=== PATIENT | male | born 2000 | race Caucasian/White ===

== ENCOUNTER 2022-07-20 23:41 | Emergency (ER) | payer OTHER, SELFPAY ==
--- NOTE | ~2022-07-20 | XR_ITS ---
EXAMINATION: XR FOOT, LEFT CLINICAL INFORMATION: Injury. COMPARISON: None available. TECHNIQUE: AP, lateral, and oblique views of the left foot. FINDINGS: Punctate radiopaque foci overlying the soft tissues of the distal first toe. No acute fractures or malalignment. XR/XR foot LT min 3V IMPRESSION: 1. No acute fractures or malalignment. 2. Punctate radiopaque foci overlying the soft tissues of the distal first toe likely foreign bodies, correlate with physical examination.
[2022-07-20 23:53] VITALS: BP 137/86; PULSE 82; RESP 18; TEMP 36.6; O2SAT 96; BMI 37.3
--- NOTE | 2022-07-21 01:09 | ED.GENADULT ---
HPI - General Adult General Chief complaint: Extremity Injury, Lower Stated complaint: Left foot injury Time Seen by Provider: 07/21/22 01:02 Source: patient, RN notes reviewed and old records reviewed Mode of arrival: ambulatory Limitations: no limitations History of Present Illness HPI narrative: 22-year-old male presents for evaluation of left ankle pain Patient reports that 1/2 days ago he was playing basketball when he twisted his ankle He has had trouble bearing weight on the all left leg since. He did not fall or, his head or lose consciousness He denies any other injuries He reports his pain is 8/10 and worse with walking Related Data Allergies Allergy/AdvReac Type Severity Reaction Status Date / Time No Known Allergies Allergy Verified 07/20/22 23:57 Review of Systems Musculoskeletal: Musculoskeletal: Reports abnormal gait, Reports arthralgias, Reports joint swelling and Reports limited range of motion Neurologic: Reports abnormal gait PMFSH Social History Social History Advance Directives: No Advance Directives Information Provided: Yes Physical Exam ED Vital Signs: Vital Signs - 24 hr 07/20/22 23:53 Temperature 97.9 F Pulse Rate 82 Respiratory Rate 18 Blood Pressure 137/86 Pulse Oximetry 96 Oxygen Delivery Method Room Air BMI result Body Mass Index 37.3 Const General: healthy appearing, comfortable, no acute distress, alert and awake Nutritional Appearance: well nourished Orientation/consciousness: patient oriented x3 HENMT Head: Yes normocephalic and Yes atraumatic Throat: Yes posterior oropharynx normal Skin General skin exam: no rashes or lesions noted and elasticity normal Neuro General: patient oriented x3 Cranial nerves: Yes CN's II-XII intact bilaterally and Yes Bilaterally intact EOM present Cognition (Neuro): normal cognition Extrem Other: Patient has edema with tenderness to the medial and lateral aspect of the left ankle. No significant palpable deformities. No Achilles tenderness. Patient is able to dorsiflex and plantar flex the ankle. Medical Decision Making Medical Decision Making MDM Narrative: X-ray shows no acute fracture of the left ankle. The patient likely has a sprain. The punctate foreign body seen at left great toe is noted on Radiology impression. However, no open wounds to suggest this is an acute foreign body. Differential Diagnosis Ankle sprain Ankle fracture Ankle dislocation Contusion Independent Interpretation I performed an independent interpretation of an: Plain X-Ray (No obvious fracture of the left ankle) Radiology Impression Discussion of test interpretation with radiology: I have reviewed the radiologist's reading. (No fracture. Punctate foreign body the left 1st toe) Discharge Plan Discharge Clinical Impression: Left ankle sprain Patient Disposition: Home, Self-Care Instructions: Ankle Sprain (ED) Additional Instructions: To continue ice, rest, elevation, NSAIDs. Your ankle x-ray did not show any evidence of fracture. You may use the crutches as needed to help with ambulation. When you are comfortable bearing weight on your left leg, you may stop using the crutches Interventions: ED Discharge Assessment Last Done: 07/21/22 02:15 Discharge Date/Time: 07/21/22 01:20
--- OUTSIDE RECORDS SUMMARY | 2022-07-21 01:15 | XMS_ITS | Continuity of Care Document ---
Author Name Unknown Organization [facility] Address [address] [place] [address]- Care Team Providers Care Tumbling And Rolling Supervisor Name Role Phone Not on Staff, PCP Primary Care Physician Unavail able [facility]): 02/28/22 - 03/30/22 [facility] [address] [place] [address] Allergies, Adverse Reactions, Alerts No Known Allergies Immunizations Given and Recorded Vaccine Date Status Refusal Reason Human Papillomavirus Vaccine 1 12/26/18 Given Human Papillomavirus Vaccine 2 07/09/17 Given Hepatitis A Pediatric Vaccine 3 12/26/18 Given Hepatitis A Pediatric Vaccine 4 07/09/17 Given Meningococcal Conjugate Vaccine 5 07/09/17 Given Meningococcal Conjugate Vaccine 6 06/20/11 Given influenza virus vaccine, inactivated 02/28/12 Give n influenza virus vaccine, inactivated 7 06/20/11 Gi fawad tetanus/diphtheria/pertussis, acel(Tdap) 8 06/20/11 Given Varicella Virus Vaccine 9 06/22/09 Given Varicella Virus Vaccine 10 10/06/01 Given Influenza Inactive (IM) (oldterm) 04/13/08 Given Influenza Inactive (IM) (oldterm) 11 03/01/08 Give n diphtheria/tetanus/pertussis, acel(DTaP) 12 08/31/05 Given diphtheria/tetanus/pertussis, acel(DTaP) 13 11/24/01 Given diphtheria/tetanus/pertussis, acel(DTaP) 14 08/07/01 Given diphtheria/tetanus/pertussis, acel(DTaP) 15 00 Given diphtheria/tetanus/pertussis, acel(DTaP) 16 00 Given Poliovirus Vaccine, Inactivated 17 08/31/05 Given Poliovirus Vaccine, Inactivated 18 11/24/01 Given Poliovirus Vaccine, Inactivated 19 00 Given Poliovirus Vaccine, Inactivated 20 00 Given Measles/Mumps/Rubella Virus Vaccine 21 08/31/05 Gi fawad Measles/Mumps/Rubella Virus Vaccine 22 10/06/01 Gi fawad Haemophilus B conjugate (HbOC) vaccine 23 10/06/01 Given Haemophilus B conjugate (HbOC) vaccine 24 00 Given Haemophilus B conjugate (HbOC) vaccine 25 00 Given Haemophilus B conjugate (HbOC) vaccine 26 00 Given Hepatitis B Vaccine (old term) 27 00 Given Hepatitis B Vaccine (old term) 28 00 Given Hepatitis B Vaccine (old term) 29 00 Given pneumococcal 7-valent vaccine 00 Given pneumococcal 7-valent vaccine 00 Given pneumococcal 7-valent vaccine 00 Given 1Result Comment: [facility] [id number] Recommended to stay after vaccine for 10 minutes. BHN was seeing patient after vaccines, and with patient. Patient agreed. 2Result Comment: [id number] 3Result Comment: [facility] [id number] 4Result Comment: [id number] 5Result Comment: [id number] 6Admin Note: MENACTRA GIVEN..VIS GIVEN DATED 7Admin Note: vis dated 11/07/2010given 8Admin Note: vis given 05/08/2011 9Admin Note: vis06/26/07-given 10Admin Note: vis 08 given 11Admin Note: VIS 11/06/2007 12Admin Note: vis given 08.29.2006 13Admin Note: vis given 08.29.2006 14Admin Note: vis given 08.29.2006 15Admin Note: vis given 08.29.2006 16Admin Note: vis given 08.29.2006 17Admin Note: vis 04.15.1999 given 18Admin Note: vis 04.15.1999 given 19Admin Note: vis 04.15.1999 given 20Admin Note: vis 04.15.1999 given 21Admin Note: vis 06.25.08 given 22Admin Note: vis 06.25.08 given 23Admin Note: [id number] vis given 03.30.1998 24Admin Note: rs435vw vis given 03.30.1998 25Admin Note: lk469lx vis given 03.30.1998 26Admin Note: vo077ih vis given 03.30.1998 27Admin Note: vis given 10.30.06 28Admin Note: vis given 10.30.06 29Admin Note: vis given 10.30.06 Medications fluticasone CFC free 110 mcg/inh inhalation aerosol with adapter 2 puffs, Inhalation, 2 times a day, # 12 Gm, 0 Refills, Maintenance Start Date: 09/06/10 Status: Ordered ibuprofen 100 mg/5 ml oral suspension 20 mL = 400 mg, By Mouth, Every 8 hours, # 240 mL, 5 Refills, Maintenance, PRN PAIN OR FEVER Start Date: 06/06/11 Status: Ordered ProAir HFA 90 mcg/inh inhalation aerosol with adapter 2 puffs, Inhalation, 4 times a day, PRN Wheezing/Shortness of Breath, 'one inhaler for use in school and one inhaler to be kept at home', # 2 units, 1 Refills, Maintenance Start Date: 09/03/11 Status: Ordered Problem List Condition Confirmation Course Effective Dates Status H ealth Status Informant Asthma, intermittent Confirmed Active Attention deficit hyperactivity disorder Confirmed 05/05/08 Active Warts Confirmed Active Social History Social History Type Response Smoking Status Current every day sm oker; Tobacco user in household: Yes; Type: Cigarettes entered on: 07/09/17 Sex Patient Care team information Care Team Personnel Name: Not on Staff, PCP Position: S Physician (General Medicine) Member Role: PCP Care Team Related Persons Name: MARCIA RANGEL Address: home [address] [place] [address] Name: MARCIA RANGEL Address: home [address] [place] [address]
--- OUTSIDE RECORDS SUMMARY | 2022-07-21 01:15 | XMS_ITS | Continuity of Care Document ---
Author Name Unknown Organization [facility] Address [address] [place] [address]- Care Team Providers Care Nuclear Technician Name Role Phone Not on Staff, PCP Primary Care Physician Unavail able [facility]): 10[facility]17[facility]20 - 11/16/20 [facility] [address], [place] [address] Attending Physician: Freddy Yost Admitting Physician: AdmFreddy schultz Referring Physician: Admtr, Ar8 Allergies, Adverse Reactions, Alerts Substance Reaction Severity Status NKA Active Immunizations Given and Recorded Vaccine Date Status [...] pneumococcal 7-valent vaccine 00 Given 1Result Comment: [facility] [id number] Recommended to stay after vaccine for 10 minutes. N was seeing patient after vaccines, and with patient. Patient agreed. 2Result Comment: [id number] 3Result Comment: [facility] [id number] 4Result Comment: [phone] 5Result Comment: [id number] 6Admin Note: MENACTRA GIVEN..VIS GIVEN DATED 7Admin Note: vis dated 11/07/2010given 8Admin Note: vis given 05/08/2011 9Admin Note: vis06/26/07-given 10Admin Note: vis 06.26.07 given 11Admin Note: VIS 11/06/2007 12Admin Note: vis given 08.29.2006 13Admin Note: vis given 08.29.2006 14Admin Note: vis given 08.29.2006 15Admin Note: vis given 08.29.2006 16Admin Note: vis given 08.29.2006 17Admin Note: vis 04.15.1999 given 18Admin Note: vis 04.15.1999 given 19Admin Note: vis 04.15.1999 given 20Admin Note: vis 04.15.1999 given 21Admin Note: vis 06.26.07 given 22Admin Note: vis 06.26.07 given 23Admin Note: [id number] vis given 03.30.1998 24Admin Note: gm427gn vis given 03.30.1998 25Admin Note: sk542po vis given 03.30.1998 26Admin Note: hf128yc vis given 03.30.1998 27Admin Note: vis given [...] Date: 09/03/11 Status: Ordered Problem List Condition Effective Dates Status Health Status Inform ant Asthma, intermittent(Confirmed) Active Attention deficit hyperactiv ity disorder(Confirmed) 05/05/08 Active Warts(Confirmed) Active Social History Social History Type Response Smoking Status Current every day kanika leo; Tobacco user in household: Yes; Type: Cigarettes entered on: 07/09/17 Sex
--- OUTSIDE RECORDS SUMMARY | 2022-07-21 01:15 | XMS_ITS | Continuity of Care Document ---
Author Name Unknown Organization [facility] Address [address] [place] [address]- Care Team Providers Care Finance Insurance Manager Name Role Phone Not on Staff, PCP Primary Care Physician Unavail able [facility]s): 12/28/21 - 03/28/22 [facility] [address] [place] [address]- Attending Physician: Porter Leblanc MD Admitting Physician: Porter Leblanc MD Allergies, Adverse Reactions, Alerts No Known Allergies [...] pneumococcal 7-valent vaccine 00 Given 1Result Comment: [facility] [id number] Recommended to stay after vaccine for 10 minutes. N was seeing patient after vaccines, and with patient. Patient agreed. 2Result Comment: [phone] 3Result Comment: [facility] [phone] 4Result Comment: [phone] 5Result Comment: [phone] 6Admin Note: MENACTRA GIVEN..VIS GIVEN DATED 7Admin [...] 22Admin Note: vis 06.26.07 given 23Admin Note: [id number] vis given 03.30.1998 24Admin Note: nw523vy vis given 03.30.1998 25Admin Note: ae853tm vis given 03.30.1998 26Admin Note: pp370hu vis given 03.30.1998 27Admin Note: vis given [...] Personnel Name: Not on Staff, PCP Position: [facility] Physician (General Medicine) Member Role: PCP Care Team Related Persons Name: MARCIA RANGEL Address: home [address] [place] [address] Name: MARCIA RANGEL Address: home [address] [place] [address]
--- OUTSIDE RECORDS SUMMARY | 2022-07-21 01:15 | XMS_ITS | Continuity of Care Document ---
Author Name Unknown Organization [facility] Address [address] [place] [address]- Care Team Providers Care Coal Miner Name Role Phone Not on Staff, PCP Primary Care Physician Unavail able [facility]): 10/17/20 - 10/24/20 [facility] [address] [place], [place] [address] Attending Physician: Terese Landers MD Allergies, Adverse Reactions, Alerts Substance Reaction Severity [...] pneumococcal 7-valent vaccine 00 Given 1Result Comment: [facility] [id number] Recommended to stay after vaccine for 10 minutes. BHN was seeing patient after vaccines, and with patient. Patient agreed. 2Result Comment: [phone] 3Result Comment: [facility] [phone] 4Result Comment: [phone] 5Result Comment: [id number] 6Admin Note: MENACTRA GIVEN..VIS GIVEN DATED 7Admin [...] 22Admin Note: vis 06.26.07 given 23Admin Note: lp305sp vis given 03.30.1998 24Admin Note: nr406tp vis given 03.30.1998 25Admin Note: ox286wn vis given 03.30.1998 26Admin Note: df897ev vis given 03.30.1998 27Admin Note: vis given [...] OR FEVER Start Date: 06/06/11 Status: Ordered naproxen 500 mg oral tablet 1 tablet = 500 mg, By Mouth, 2 times a day, for 10 days, # 20 tablet, 0 Refills, Acute 10/27/20 11:28:00 EDT, 10/17/20 11:28:00 EDT, Tablet, [id number], Partial fill upon patient request if the prescription is for a schedule II opioid... Start Date: 10/17/20 Stop Date: 10/27/20 Status: Ordered ProAir HFA 90 mcg/inh inhalation [...] hyperactiv ity disorder(Confirmed) 05/05/08 Active Warts(Confirmed) Active Vital Signs Most recent to oldest [Reference Range]: 1 Height 178 cm (10/17/20 11:10 AM) Oxygen Saturation [94-100 %] 100 % (10/17/20 11:10 AM) Pulse Rate [55-90 bpm] 58 bpm (10/17/20 11:10 AM) Blood Pressure [90-138/55-84 mm Hg] 144/ 71mm Hg *H* (10/17/20 11:10 AM) Respiratory Rate [16-30 br/min] 20 br/mi n (10/17/20 11:10 AM) Temperature [96.8-100.4 DegF] 97.3 DegF (10/17/20 11:10 AM) Mode of Delivery (Oxygen) Room air (10/17/20 11:10 AM) Blood pressure sites Arm, left (10/17/20 11:10 AM) Temperature Route Temporal (10/17/20 11:10 AM) Social History Social History Type Response Smoking Status Current every day kanika leo; Tobacco user in household: Yes; Type: Cigarettes entered on: 07/09/17 Sex
--- OUTSIDE RECORDS SUMMARY | 2022-07-21 01:15 | XMS_ITS | Continuity of Care Document ---
Author Name Unknown Organization [facility] Address [address] [place] [address]- Care Team Providers Care Electronic Engineering Technician Name Role Phone Devorah Villalba MD Primary Care Physician [facility]counter [facility]): 06/12/22 - 07/12/22 [facility] [address] [place] [id number] Allergies, Adverse Reactions, Alerts No Known [...] pneumococcal 7-valent vaccine 00 Given 1Result Comment: [facility] [id number] Recommended to stay after vaccine for 10 minutes. BHN was seeing patient after vaccines, and with patient. Patient agreed. 2Result Comment: [id number] 3Result Comment: [facility] [phone] 4Result Comment: [phone] 5Result Comment: [id number] 6Admin Note: MENACTRA GIVEN..VIS GIVEN DATED 7Admin [...] 22Admin Note: vis 06.25.08 given 23Admin Note: up556sp vis given 03.30.1998 24Admin Note: by727cv vis given 03.30.1998 25Admin Note: un886aq vis given 03.30.1998 26Admin Note: nm262az vis given 03.30.1998 27Admin Note: vis given 10.30.06 28Admin Note: vis given 10.30.06 29Admin Note: vis given 10.30.06 Medications BP home monitor with cuff BP home monitor with cuff, See Instructions, # 1 each, Refills 0, Tot. Refills 0, Maintenance, I10,hypertension Use every other day to check BP Lifetime, 06/11/22 14:21:00 EST, Supply Start Date: 06/11/22 Status: Ordered fluticasone CFC free 110 mcg/inh inhalation aerosol with adapter 2 puffs, Inhalation, 2 times a day, # 12 Gm, 0 Refills, Maintenance Start Date: 09/06/10 Status: Ordered ibuprofen 100 mg/5 ml oral suspension 20 mL = 400 mg, By Mouth, Every 8 hours, # 240 mL, 5 Refills, Maintenance, PRN PAIN OR FEVER Start Date: 06/06/11 Status: Ordered Ventolin HFA 108 mcg/inh inhalation aerosol with adapter 1 puffs, Inhalation, Every 4 hours, PRN for wheezing, # 1 each, 1 Refills, Maintenance, 06/15/22 16:13:00 EST, Aerosol, [id number], Partial fill upon patient request if the prescription is for a schedule II opioid drug., 178, cm, 030... Start Date: 06/15/22 Status: Ordered Problem List Condition Confirmation Course Effective Dates Status H ealth Status Informant Asthma, intermittent Confirmed Active Attention deficit hyperactivity disorder Confirmed 05/05/08 Active Elation Confirmed Active Elevated BP without diagnosis of hypertension Confirmed Active Excessive sweating Confirmed Active Obese class II Confirmed Active Prediabetes Confirmed Active Warts Confirmed Active Social History Social History Type Response Smoking Status Current every day sm oker; Tobacco user in household: Yes; Type: Cigarettes entered on: 07/09/17 Sex Patient Care team information Care Team Personnel Name: Devorah Villalba MD Position: S Primary Care Physician Member Role: PCP Address: Address: [address] [place] [address] Care Team Related Persons Name: MARCIA RANGEL Address: home [address] [place] [address] Name: MARCAI RANGEL Address: home [address] [place] [address]
--- OUTSIDE RECORDS SUMMARY | 2022-07-21 01:15 | XMS_ITS | Continuity of Care Document ---
Author Name Unknown Organization [facility] Address [address] [place] [address]- Care Team Providers Care Out Of Town Collection Clerk Name Role Phone Not on Staff, PCP Primary Care Physician Unavail able [facility]counter [facility]): 02/26/22 - 03/28/22 [facility] [address] [place] [address] Attending Physician: Freddy Yost Admitting Physician: Freddy Yost Referring Physician: AdmtrFreddy Allergies, Adverse Reactions, Alerts No Known Allergies [...] pneumococcal 7-valent vaccine 00 Given 1Result Comment: [facility] [phone] Recommended to stay after vaccine for 10 minutes. N was seeing patient after vaccines, and with patient. Patient agreed. 2Result Comment: [id number] 3Result Comment: [facility] [phone] 4Result Comment: [phone] 5Result Comment: [phone] 6Admin Note: MENACTRA GIVEN..VIS GIVEN DATED 7Admin [...] 22Admin Note: vis 06.26.07 given 23Admin Note: xh189zd vis given 03.30.1998 24Admin Note: hx533pk vis given 03.30.1998 25Admin Note: jc860yd vis given 03.30.1998 26Admin Note: rp569hk vis given 03.30.1998 27Admin Note: vis given [...] Personnel Name: Not on Staff, PCP Position: [facility] Physician (General Medicine) Member Role: PCP Care Team Related Persons Name: MARCIA RANGEL Address: home [address] [place] [address] Name: MARCIA RANGEL Address: home [address] [place] [address]
--- OUTSIDE RECORDS SUMMARY | 2022-07-21 01:15 | XMS_ITS | Continuity of Care Document ---
Author Name Unknown Organization [facility] Address [address] [place] [address]- Care Team Providers Care Veneer Splicer Name Role Phone Devorah Villalba MD Primary Care Physician [facility]counter [facility]s): 06/13/22 - 07/13/22 [facility] [address] [place], [place] [address] Attending Physician: Freddy Yost Admitting Physician: Freddy [...] 00 Given 1Result Comment: [facility] [phone] Recommended to stay after vaccine for 10 minutes. N was seeing patient after vaccines, and with patient. Patient agreed. 2Result Comment: [phone] 3Result Comment: [facility] [phone] 4Result Comment: [phone] 5Result Comment: [phone] 6Admin Note: MENACTRA GIVEN..VIS GIVEN DATED 7Admin [...] Note: vis 04.15.1999 given 21Admin Note: vis 03.13.08 given 22Admin Note: vis .13.08 given 23Admin Note: yz911kk vis given 03.30.1998 24Admin Note: yn379kc vis given 03.30.1998 25Admin Note: sh457vx vis given 03.30.1998 26Admin Note: bv572bo vis given 03.30.1998 27Admin Note: vis given [...] 1 Refills, Maintenance, 06/15/22 16:13:00 EST, Aerosol, [facility] #[id number], Partial fill upon patient request if the prescription is for a schedule II opioid drug., 178, cm, ... Start Date: 06/15/22 Status: Ordered Problem List [...] Care Physician Member Role: PCP Address: Address: [address] [place] [address]- Care Team Related Persons Name: MARCIA RANGEL Address: home [address] [place] [address] Name: MARCIA RANGEL Address: home [address] [place] [address]
--- OUTSIDE RECORDS SUMMARY | 2022-07-21 01:15 | XMS_ITS | Continuity of Care Document ---
Author Name Unknown Organization [facility] Address [address] [place] [address]- Care Team Providers Care Antique Finisher Name Role Phone Devorah Villalba MD Primary Care Physician [facility]): 06/13/22 - 07/13/22 [facility] [address] [place] [address]- Attending Physician: Freddy Yost Admitting Physician: Freddy [...] 1Result Comment: [facility] [phone] Recommended to stay after vaccine for 10 minutes. N was seeing patient after vaccines, and with patient. Patient agreed. 2Result Comment: [id number] 3Result Comment: [facility] [phone] 4Result Comment: [phone] 5Result Comment: [phone] 6Admin Note: MENACTRA GIVEN..VIS GIVEN DATED 7Admin [...] 22Admin Note: vis 06.25.08 given 23Admin Note: [id number] vis given 03.30.1998 24Admin Note: bw888av vis given 03.30.1998 25Admin Note: op327ar vis given 03.30.1998 26Admin Note: ev104nw vis given 03.30.1998 27Admin Note: vis given [...] 1 Refills, Maintenance, 06/15/22 16:13:00 EST, Aerosol, [facility][id number], Partial fill upon patient request if the [...] Team Personnel Name: Devorah Villalba MD Position: [facility] Primary Care Physician Member Role: PCP Address: Address: [address] [place] [address]- Care Team Related Persons Name: MARCIA RANGEL Address: home [address] [place] [address] Name: MARCIA RANGEL Address: home [address] [place] [address]
--- OUTSIDE RECORDS SUMMARY | 2022-07-21 01:15 | XMS_ITS | Continuity of Care Document ---
Author Name Unknown Organization [facility] Address [address] [place] [id number]- Care Team Providers Care Associate Professor Of Art History Name Role Phone Devorah Villalba MD Primary Care Physician Encounter [facility] Date(s): 06/13/22 - 07/13/[address] [id number] Allergies, Adverse Reactions, Alerts No Known Allergies [...] pneumococcal 7-valent vaccine 00 Given 1Result Comment: [facility] [id number] Recommended to stay after vaccine for 10 minutes. BHN was seeing patient after vaccines, and with patient. Patient agreed. 2Result Comment: [id number] 3Result Comment: [facility] [id number] 4Result Comment: [id number] 5Result Comment: [id number] 6Admin Note: MENACTRA GIVEN..VIS GIVEN DATED 7Admin [...] 22Admin Note: vis 06.25.08 given 23Admin Note: [id number] vis given 03.30.1998 24Admin Note: [id number] vis given 03.30.1998 25Admin Note: [id number] vis given 03.30.1998 26Admin Note: [id number] vis given 03.30.1998 27Admin Note: vis given [...] 1 Refills, Maintenance, 06/15/22 16:13:00 EST, Aerosol, [id number], Partial fill upon patient request if the [...] Care Physician Member Role: PCP Address: Address: [address] [place] [address] Care Team Related Persons Name: MARCIA RANGEL Address: home [address] [place] [address] Name: MARCIA RANGEL Address: home [address] [place] [id number]
[2022-07-21 01:20] VITALS: BP 136/64; PULSE 76; RESP 16; O2SAT 100
== END 2022-07-21 01:20 | disposition home or self-care (01) ==
PROVIDERS: Emergency Provider Student in an Organized Health Care Education/Training Program; PCP Internal Medicine
DX: S93.402A Sprain of unspecified ligament of left ankle, initial encounter (principal); X50.1XXA Overexertion from prolonged static or awkward postures, initial encounter; Y93.67 Activity, basketball; Y92.310 Basketball court as the place of occurrence of the external cause; Y99.9 Unspecified external cause status
CPT/HCPCS: 73630; 99283

== ENCOUNTER 2023-06-04 17:22 | Emergency (ER) | payer OTHER, SELFPAY ==
[2023-06-04 18:06] VITALS: BP 152/83; PULSE 67; RESP 18; TEMP 36.6; O2SAT 100; BMI 38.7
--- NOTE | 2023-06-04 18:11 | ED.GENADULT ---
HPI - General Adult General Chief complaint: Ear Problems Stated complaint: Ear infection?/pink eye Time Seen by Provider: 06/04/23 19:24 Source: patient Mode of arrival: ambulatory Limitations: no limitations History of Present Illness HPI narrative: 23 yold healthy male presents to the ED for right pink eye, bilateral ear pain, and coughing with nasal congestion. patient states no chest pain or shorntess of breath. Related Data Previous Rx's Medication Instructions Recorded amoxicillin 875 mg-potassium 1 tab PO BID 10 days #20 tabs 06/05/23 clavulanate 125 mg tablet naproxen 500 mg tablet 500 mg PO Q8-12H PRN pain (scale 06/05/23 score 4-6) #14 tabs Allergies Allergy/AdvReac Type Severity Reaction Status Date / Time No Known Allergies Allergy Verified 07/20/22 23:57 Review of Systems Review of Systems: bilateral ear pain, right eye pinke eye, coughing Yes all other systems are reviewed and are negative [facility] Social History Social History Advance Directives: No Advance Directives Information Provided: No Physical Exam ED Vital Signs: Vital Signs - 24 hr 06/04/23 18:06 Temperature 97.8 F Pulse Rate 67 Respiratory Rate 18 Blood Pressure 152/83 H Pulse Oximetry 100 Oxygen Delivery Method Room Air BMI result Body Mass Index 38.7 Const General: cooperative, healthy appearing, comfortable, no acute distress, well developed, alert, awake and Physically active Orientation/consciousness: oriented to person, oriented to place, oriented to time and patient oriented x3 HENMT Head: Yes normal to inspection, Yes No palpable skull fracture present, Yes normocephalic, Yes atraumatic and No abrasion Ears: hearing grossly normal bilaterally, external ears normal, EAC's normal, mastoids normal, no periauricular adenopathy and TM abnormal bulging bilateral and erythematous bilateral Throat: Yes posterior oropharynx normal, Yes tonsils normal and Yes uvula midline Eyes Other: positive for right eye conjuctiva, pink eye Neck Neck: Yes normal visual inspection, Yes full ROM, Yes no lymphadenopathy, Yes no meningeal signs, Yes trachea midline, Yes supple, No anterior neck swelling and No tender Chest Chest palpation & inspection: normal inspection of the chest and normal palpation of entire chest wall Resp Effort & Inspection: normal respiratory effort and able to speak in complete sentences Auscultation: clear to auscultation bilaterally Cardio Jugular venous distension: no JVD Heart sounds: S1 normal heart sound present and S2 normal heart sound present GI Inspection: Yes normal to inspection and No abdominal wall ecchymosis Palpation (GI): Soft to palpation, not firm, nontender, no guarding and not rigid General: Yes no CVA tenderness Back/Spine/Pelvis Back: no CVA tenderness and No back tenderness Skin General skin exam: no rashes or lesions noted, elasticity normal and turgor normal Neuro General: oriented to person, oriented to place, oriented to time, patient oriented x3, gait normal, tone normal, moves all extremities, Normal light touch and pain sensation, no meningeal signs, no focal motor deficits and CN's II-XI intact bilaterally Extrem General: Yes normal to inspection, Yes full ROM and Yes capillary refill normal Psych Appearance: grossly normal, well kempt and not disheveled Course Course Course Narrative: RME: 23 yold male presents to the ED for bilateral ear pain, right pink eye, and nasal congestion. SARS/Strep ordereed Medications Administered Discontinued Medications Generic Name Dose Route Start Last Admin Trade Name Freq PRN Reason Stop Dose Admin Acetaminophen 975 mg 06/04/23 19:40 06/04/23 19:55 Acetaminophen 325 Mg Tablet PO 06/04/23 19:41 975 mg ONCE ONE Administration Medical Decision Making Medical Decision Making [facility] Narrative: 23 yold male with covid, right ear infection and right pink eye. Patient not in any distress. Discharge with antibiotics and pain meds. Patient explained of worrisome signs and informed to return to the ED if he has them. Differential Diagnosis Differential Diagnoses: The differential diagnosis associated with the presentation includes (covid, oitits media, conjucitivitis) Admission/Observation Consideration of admission/observation: Escalation of care including admission/observation considered Lab Data [facility] Lab Attestation statement: I reviewed the patient's lab results. Labs: Lab Results 06/04/23 Range/Units 18:35 Influenza Type A (PCR) NEGATIVE (Negative) Influenza Type B (PCR) NEGATIVE (Negative) RSV RNA Qual (PCR) NEGATIVE (Negative) SARS-CoV-2 RNA (RT-PCR) POSITIVE A (Negative) S. pyogenes GrpA DARNELL Negative (Negative) External Record Review External record reviewed: Other (prior visits) Prescription Management I considered prescription management with: Pain Medication and Antibiotic Discharge Plan Discharge Clinical Impression: Otitis media, COVID-19, Conjunctivitis Patient Disposition: Home, Self-Care Instructions: Ear Infection (ED), Conjunctivitis (ED), COVID-19 (Coronavirus Disease 2019) (ED) Additional Instructions: You are positive for COVID-19. Recommend self isolation for at least 5 days. Return to the ED immediately for any chest pain, shortness of breath, weakness, dizziness, eye pain, change in vision, loss of vision, worsening ear pain, swelling redness in front or behind the ear, ear drainage, or any other concerning symptoms. Please follow-up with primary care provider Prescriptions: New amoxicillin-pot clavulanate 875-125 mg tablet 1 tab PO BID 10 Days Qty: 20 0RF naproxen 500 mg tablet 500 mg PO Q8-12H PRN (Reason: pain (scale score 4-6)) Qty: 14 0RF Stand Alone Forms: Work/School Release Interventions: ED Discharge Assessment Last Done: 06/04/23 19:57 Discharge Date/Time: 06/04/23 19:57 Print Language: Upper Sorbian
[2023-06-04 18:51] LABS: IDNOW Serial# 58CA691E; Strep A Nucleic Acid Negative (Negative)
[2023-06-04 19:19] LABS: Influenza A PCR NEGATIVE (Negative); Influenza B PCR NEGATIVE (Negative); Resp Syncy Virus RNA Qual PCR NEGATIVE (Negative); SARS COV2 PCR INHOUSE POSITIVE (Negative)
[2023-06-04] MEDS: Acetaminophen 325 MG TABLET 975 MG PO (19:55)
== END 2023-06-04 19:57 | disposition home or self-care (01) ==
PROVIDERS: Physician Assistant; Emergency Provider Emergency Medicine Emergency Medical Services; PCP Internal Medicine
DX: U07.1 COVID-19 (principal); H10.9 Unspecified conjunctivitis; H66.93 Otitis media, unspecified, bilateral
CPT/HCPCS: 0241U; 87651; 99283